=== PATIENT | male | born 1995 | race Caucasian/White ===

== ENCOUNTER 2022-05-17 19:04 | Emergency (ER) | payer BC ==
[2022-05-17] MEDS ORDERED: Acetaminophen/oxyCODONE 325-10 MG Tab PO STA (22:19)
[2022-05-17 22:55] VITALS: BP 112/58; PULSE 81
== END 2022-05-17 22:55 | disposition home or self-care (01) ==
LOC: MW.ED 19:04
DX: S97.02XA Crushing injury of left ankle, initial encounter (principal); S97.01XA Crushing injury of right ankle, initial encounter; S90.122A Contusion of left lesser toe(s) without damage to nail, initial encounter; S90.121A Contusion of right lesser toe(s) without damage to nail, initial encounter; Z88.0 Allergy status to penicillin; W31.9XXA Contact with unspecified machinery, initial encounter
CPT/HCPCS: 73590; 73610; 73630; 99283; A9270

== ENCOUNTER 2022-12-19 11:14 | Emergency (ER) | payer SELFPAY ==
[2022-12-19 14:47] VITALS: BP 128/86; PULSE 74
== END 2022-12-19 14:46 | disposition home or self-care (01) ==
LOC: MW.ED 11:14
DX: J32.9 Chronic sinusitis, unspecified (principal); Z88.0 Allergy status to penicillin
CPT/HCPCS: 70450; 70450-26; 70486; 70486-26; 99283

== ENCOUNTER 2025-01-10 12:50 | Emergency (ER) | payer SELFPAY ==
[2025-01-10] MEDS: Lidocaine 1% with EPINEPHrine 1:100,000 10 ML MDV INFILT ONE (13:14)
[2025-01-10] MEDS: Diphtheria,Pertussis(Acell),Tetanus Vaccine 0.5 ML Syringe IM ONE (13:14)
[2025-01-10] MEDS: Levofloxacin/Dextrose 5%-Water 750 MG in Premix Bag 1 BAG IV ONE (13:47)
[2025-01-10] MEDS: Ketorolac 30 MG/ML SDV IVPUSH ONE (14:03)
[2025-01-10 15:34] VITALS: BP 129/78; PULSE 79
== END 2025-01-10 15:49 | disposition home or self-care (01) ==
LOC: MW.ED 12:50
DX: S02.19XB Other fracture of base of skull, initial encounter for open fracture (principal); S09.90XA Unspecified injury of head, initial encounter; G44.319 Acute post-traumatic headache, not intractable; Z88.1 Allergy status to other antibiotic agents; Z79.899 Other long term (current) drug therapy; W31.1XXA Contact with metalworking machines, initial encounter
CPT/HCPCS: 12013; 70450; 70486; 90471; 90715; 96365; 96375; 99283; A9270; J1885; J1956; J2004